=== PATIENT | male | born 1980 | race African-American/Black ===

== ENCOUNTER 2020-10-29 19:34 | Emergency (ER) | payer BC ==
[~2020-10-29] VITALS: Ht 198.1 cm; Wt 96.0 kg
[2020-10-29 19:49] VITALS: BP 145/71
[2020-10-29] MEDS ORDERED: IBUPROFEN 600MG TABLET PO ONE (20:30)
[2020-10-29] MEDS ORDERED: IBUP-2028 MT (21:56)
== END 2020-10-29 22:00 | disposition home or self-care (01) ==
LOC: ER 19:34
DX: M79.602 Pain in left arm (principal); M77.8 Other enthesopathies, not elsewhere classified
CPT/HCPCS: 73060; 73080; 93971; 99284